=== PATIENT | female | born 1990 | race Two or more races ===

== ENCOUNTER → 2019-03-06 | Outpatient (REF) | payer OTHER ==
[2019-03-06 13:13] LABS: HEMATOCRIT 42.2 % (36.0-47.0); MEAN CORPUSCULAR HEMOGLOBIN 27.7 pg (27.0-33.0); MEAN CORPUSCULAR HGB CONC 33.2 g/dl (32.0-36.5); MEAN CORPUSCULAR VOLUME 83.6 fl (80.0-96.0); PLATELET COUNT, AUTOMATED 196 10^3/uL (150-450); RED BLOOD COUNT 5.05 10^6/uL (4.00-5.40); WHITE BLOOD COUNT 10.2 10^3/uL (4.0-10.0)
[2019-03-06 13:56] LABS: HCG, SERUM QUANTITATIVE 25456 MIU/ML
[2019-03-07 09:07] LABS: RUBELLA IgG QUALITATIVE IMMUNE (IMMUNE)
[2019-03-07 09:37] LABS: HIV 1&2 SCREEN CENTAUR NEGATIVE (NEGATIVE)
[2019-03-07 12:52] LABS: HEPATITIS C VIRUS ABY INDEX 0.2 INDEX (<0.8)
== END ==
LOC: M LAB REF 12:24
PROVIDERS: ATTEND Nurse Practitioner Women's Health
DX: Z32.01 Encounter for pregnancy test, result positive (principal); O36.80X0 Pregnancy with inconclusive fetal viability, not applicable or unspecified; Z3A.00 Weeks of gestation of pregnancy not specified

== ENCOUNTER → 2019-07-15 | Outpatient (REF) | payer OTHER | LOC: M SFHCLERA 11:55 | PROVIDERS: ATTEND Nurse Practitioner Family | DX: J00 Acute nasopharyngitis [common cold] (principal) ==

== ENCOUNTER → 2019-08-07 | Outpatient (CLI) | payer OTHER ==
[2019-08-07 11:06] LABS: HEMATOCRIT 38.9 % (36.0-47.0); MEAN CORPUSCULAR HEMOGLOBIN 28.7 pg (27.0-33.0); MEAN CORPUSCULAR HGB CONC 33.4 g/dl (32.0-36.5); MEAN CORPUSCULAR VOLUME 85.9 fl (80.0-96.0); PLATELET COUNT, AUTOMATED 108 10^3/uL (150-450); RED BLOOD COUNT 4.53 10^6/uL (4.00-5.40); WHITE BLOOD COUNT 11.7 10^3/uL (4.0-10.0)
== END ==
LOC: M LAB 09:19
PROVIDERS: ATTEND Obstetrics & Gynecology
DX: Z34.82 Encounter for supervision of other normal pregnancy, second trimester (principal)

== ENCOUNTER → 2019-10-03 | Outpatient (REF) | payer OTHER | LOC: M LAB REF 16:13 | PROVIDERS: ATTEND Obstetrics & Gynecology | DX: Z34.83 Encounter for supervision of other normal pregnancy, third trimester (principal) ==

== ENCOUNTER → 2019-10-22 | Outpatient (CLI) | payer OTHER ==
[~2019-10-22] MED LIST: FOLI0.4T2 PO; IBUP80TA PO; PERCOCET PO; PRENTAB55 PO
== END ==
LOC: M LABSMTC 10:41
PROVIDERS: ATTEND Anesthesiology
DX: Z01.818 Encounter for other preprocedural examination (principal); Z11.59 Encounter for screening for other viral diseases
CPT/HCPCS: C9803; U0002

== ENCOUNTER 2019-10-24 05:12 | Inpatient (IN) | payer OTHER ==
[2019-10-24] VITALS (11 sets, daily range): BP systolic 104–141; BP diastolic 57–95
[~2019-10-24] VITALS: Ht 175.3 cm; Wt 116.5 kg
[~2019-10-24 05:12] MED LIST changes: -IBUP80TA PO; -PERCOCET PO
[2019-10-24] MEDS ORDERED: LR 1,000 ML IV SCH (05:35)
[2019-10-24] MEDS ORDERED: LACTATED RINGER'S 1000 ML IV STA (05:35)
[2019-10-24] MEDS ORDERED: BICITRA 30ML SOLN UDC PO ONE (05:45)
[2019-10-24] MEDS ORDERED: ceFAZolin SOD 2 GM in IV 1 EA IV ONE (05:45)
[2019-10-24 06:14] LABS: HEMATOCRIT 39.2 % (36.0-47.0); HEMOGLOBIN 13.5 g/dl (12.0-15.5); MEAN CORPUSCULAR HEMOGLOBIN 28.2 pg (27.0-33.0); MEAN CORPUSCULAR HGB CONC 34.4 g/dl (32.0-36.5); PLATELET COUNT, AUTOMATED 162 10^3/uL (150-450); RED BLOOD COUNT 4.78 10^6/uL (4.00-5.40); WHITE BLOOD COUNT 12.3 10^3/uL (4.0-10.0)
[2019-10-24] MEDS ORDERED: MORPHINE PRES-FREE INJ 10 MG/10 ML VIAL (J2274) As Ordered ONE (07:30)
[2019-10-24] MEDS ORDERED: ePHEDrine SULFATE 25 MG/5 ML(5MG/ML) SYRINGE As Ordered ONE ×2 (07:46→07:57)
[2019-10-24] MEDS ORDERED: PHENYLephrine HCL 500 MCG/5 ML (100MCG/ML) SYRINGE (J2370) As Ordered ONE (07:46)
[2019-10-24] MEDS ORDERED: OXYTOCIN 30 UNITS IN 0.9% NaCl 500ML IV BAG (J2590) As Ordered ONE ×2 (07:50→08:59)
[2019-10-24] MEDS ORDERED: ONDANSETRON 4MG/2ML VIAL As Ordered ONE ×2 (07:54→08:06)
[2019-10-24] MEDS ORDERED: ONDANSETRON 4MG/2ML VIAL IV PRN ×2 (08:00→09:15)
[2019-10-24] MEDS ORDERED: diphenhydrAMINE 50MG/ML VIAL (J1200) IV PRN (08:00)
[2019-10-24] MEDS ORDERED: NALBUPHINE HCL 10 MG/ML AMP (J2300) IV PRN ×2 (08:00→09:15)
[2019-10-24] MEDS ORDERED: NALOXONE INJ 0.4MG/1ML VIAL (J2310 PER 1MG) IV PRN ×2 (08:00)
[2019-10-24] MEDS ORDERED: METOCLOPRAMIDE INJ 10MG/2ML VIAL (J2765 PER 1) IV PRN (08:00)
[2019-10-24] MEDS ORDERED: KETOROLAC 60 MG/2 ML VIAL As Ordered ONE ×2 (08:05→08:06)
[2019-10-24 08:14] LABS: CORD GAS ABE V -3.8; CORD GAS HCO3 V 21.9 MEQ/L; CORD GAS O2 SAT V 80.1 %; CORD GAS PCO2 V 41.9 mmHg; CORD GAS PH V 7.336 UNITS; CORD GAS PO2 V 39.2 mmHg; CORD GAS TCO2 V 23.2 MEQ/L
[2019-10-24 08:17] LABS: CORD GAS ABE A -3.4; CORD GAS HCO3 A 23.4 MEQ/L; CORD GAS O2 SAT A 62.8 %; CORD GAS PCO2 A 48.6 mmHg; CORD GAS PH A 7.3 UNITS; CORD GAS PO2 A 30.6 mmHg; CORD GAS SBC A 20.9 MEQ/L; CORD GAS TCO2 A 24.9 MEQ/L
[2019-10-24] MEDS ORDERED: OXYTOCIN DRIP 30 UNITS in IV 1 EA IV SCH (08:51)
[2019-10-24] MEDS: DOCUSATE SODIUM 100 MG CAP PO SCH ×2 (09:00→20:39)
[2019-10-24] MEDS ORDERED: ONDANSETRON 4 MG TAB PO PRN (09:00)
[2019-10-24] MEDS ORDERED: MEASLES,MUMPS,RUBELLA VACCINE INJ (MMR-II) (90707) SC SCH (09:00)
[2019-10-24] MEDS ORDERED: RHOGAM 300 MCG (1500 IU) INJ (J2790) IM SCH (09:00)
[2019-10-24] MEDS: PRENATAL VITAMINS CHEWABLE TABLET PO SCH (09:00)
[2019-10-24] MEDS ORDERED: MOM 30ML SUSPENSION UDC PO PRN (09:00)
[2019-10-24] MEDS ORDERED: fentaNYL 100 MCG/2 ML INJECTION (J3010) IV PRN (09:15)
[2019-10-24] MEDS: IBUPROFEN 800 MG TAB PO SCH (16:00)
[2019-10-25] MEDS: IBUPROFEN 800 MG TAB PO SCH ×3 (00:12→16:04)
[2019-10-25 02:00] VITALS: BP 103/54
[2019-10-25 06:00] VITALS: BP 118/67
[2019-10-25 07:39] LABS: HEMATOCRIT 33.1 % (36.0-47.0); MEAN CORPUSCULAR HEMOGLOBIN 27.4 pg (27.0-33.0); MEAN CORPUSCULAR HGB CONC 32.3 g/dl (32.0-36.5); MEAN CORPUSCULAR VOLUME 84.9 fl (80.0-96.0); WHITE BLOOD COUNT 9.5 10^3/uL (4.0-10.0)
[2019-10-25 08:08] LABS: HEMOGLOBIN 10.7 g/dl (12.0-15.5)
[2019-10-25] MEDS: DOCUSATE SODIUM 100 MG CAP PO SCH ×2 (08:41→21:02)
[2019-10-25] MEDS: PRENATAL VITAMINS CHEWABLE TABLET PO SCH (08:42)
[2019-10-25 10:00] VITALS: BP 114/64
[2019-10-25 14:45] VITALS: BP 121/75
[2019-10-25 18:00] VITALS: BP 125/71
[2019-10-25] MEDS: PERCOCET 5MG/325MG TAB PO PRN (21:02)
[2019-10-25 22:00] VITALS: BP 125/79
[2019-10-26] MEDS: IBUPROFEN 800 MG TAB PO SCH ×2 (00:17→08:00)
[2019-10-26 06:00] VITALS: BP 120/72
[2019-10-26] MEDS: PRENATAL VITAMINS CHEWABLE TABLET PO SCH (07:59)
[2019-10-26] MEDS: PERCOCET 5MG/325MG TAB PO PRN (07:59)
[2019-10-26] MEDS: DOCUSATE SODIUM 100 MG CAP PO SCH (08:00)
[2019-10-26] MEDS ORDERED: IBUP80TA PO (08:11)
[2019-10-26] MEDS ORDERED: PERCOCET PO (08:11)
--- NOTE | 2019-10-26 08:19 | OBDS ---
[facility] Obstetrical Discharge Sum. Obstetrical Discharge Summary Date: October 26, 2019 Time: 08:15 : 2 Term: 2 Pre-term: 0 Abortions: 2 VDRL: Non-Reactive Rh: Positive Rubella: Immune Infant Sex: Male Weight: pounds (8) Anesthesia: Regional Anesthesia A/P, Post Course List any complications Admission diagnosis: Term for elective repeat c/s; Desires permanent tubal sterilization Discharge diagnosis: same Condition at Discharge: [Stable] Discharge Instructions: [Call if temp >101 or severe pain ] Activity: [as tolerated] Diet: [regular] Medications: [see list] Follow-up: [2 weeks] Other: Bright Cool DO October 26, 2019 08:19
--- NOTE | 2019-10-26 10:01 | RO ---
DATE OF PROCEDURE: 10/24/2019 Hellen is a 29-year-old female with a history of prior section who is being admitted for elective repeat section. The patient also desires permanent tubal sterilization. PREOPERATIVE DIAGNOSES: 1. Term for an elective repeat section. 2. Desires permanent tubal sterilization. POSTOPERATIVE DIAGNOSES: 1. Term for an elective repeat section. 2. Desires permanent tubal sterilization. 3. Revision of old scar. PROCEDURE: 1. Repeat section. 2. Bilateral tubal ligation using Filshie clip SURGEON: Dr. Bright Cool [employer]ILDING CLEANING SUPERVISOR: ANESTHESIA: Spinal. COMPLICATIONS: None. ESTIMATED BLOOD LOSS: 500 mL. FINDINGS: Live male infant in occiput transverse position. 9 and 9. weight 8 pounds 5 ounces. Normal appearing placenta, tubes and ovaries. DESCRIPTION OF PROCEDURE: After obtaining informed consent, the patient was taken to the operating room where spinal anesthetic was found to be adequate. She was then draped and prepped in the usual sterile fashion in the supine position. At this point, an elliptical incision was made over the old scar. The old scar was removed. The incision was carried down to the fascia. The fascia was incised in midline fashion and carried through laterally. The superior aspect of the fascia was then grasped with two Rhea clamps, tented off and dissected off the right rectus muscles sharply. The inferior aspect was dissected off in similar fashion. The rectus muscles in midline fashion. The peritoneum identified. Peritoneal cavity entered bluntly. Superior and inferior dissection of peritoneum was then done with good visualization of the bladder. At this point, a Mobius skin retractor was placed. A low transverse uterine incision was made. was delivered in atraumatic fashion. Nose and mouth bulb suctioned. Cord doubly clamped and cut. The was handed over to the awaiting warmer. Cord blood and cord gas were sent. Placenta removed manually. Uterus cleared of all clot and debris. The uterine incision was then repaired in two separate layers of 0 vicryl sutures. At this point, attention was turned to the fallopian tubes where the fimbriated ends were identified. Then a Filshie clip was placed approximately 2-3 cm away from the cornual area of each tube. Good hemostasis noted. The pelvis copiously irrigated with normal saline and suctioned out. Attention turned to the peritoneum which was closed in a running fashion using #2-0 Vicryl. The fascia closed in two separate segments of #0 Vicryl sutures. All superficial bleeders were coagulated. The skin was reapproximated in subcuticular fashion using #3-0 Vicryl on a Corey. Steri-Strips placed. The patient tolerated the procedure well. She was then transferred to recovery room in stable condition. EMILY
== END 2019-10-26 11:30 | disposition home or self-care (01) | DRG 785 ==
LOC: M LDI 05:12 → M OBS 10:15
PROVIDERS: ADMIT Obstetrics & Gynecology; ATTEND Obstetrics & Gynecology
PROC: 0UL70ZZ Occlusion of Bilateral Fallopian Tubes, Open Approach (ICD-10-PCS; 2019-10-24)
PROC: 10D00Z1 Extraction of Products of Conception, Low, Open Approach (ICD-10-PCS; principal; 2019-10-24 07:30)
DX: O34.211 Maternal care for low transverse scar from previous cesarean delivery (principal); Z37.0 Single live birth; Z30.2 Encounter for sterilization; Z3A.39 39 weeks gestation of pregnancy

== ENCOUNTER → 2020-09-12 | Outpatient (CLI) | payer OTHER ==
[~2020-09-12] MED LIST changes: -FOLI0.4T2 PO; +FOLI400T5 PO; +IBUP80TA PO; +PERCOCET PO
--- NOTE | 2020-09-12 14:39 | REP ---
INDICATION: LT WRIST GANGLION CYST. COMPARISON: None. TECHNIQUE: Soft tissue ultrasound palpable area left wrist. Patient states the palpable area was present 2 weeks ago but has disappeared since. States she now has pain in this area. FINDINGS: Sonographic evaluation the wrist in the area of her reported prior palpable finding. There is no subcutaneous mass, abnormal fluid collection or cystic lesion. See no skin thickening. IMPRESSION: 1. Negative exam for subcutaneous soft tissue mass, cyst or fluid collection. <Electronically signed by Froy Patton > 09/12/20 1438
== END ==
LOC: M RAD 11:38
PROVIDERS: ATTEND Nurse Practitioner Family
DX: M67.432 Ganglion, left wrist (principal)

== ENCOUNTER → 2021-01-06 | Outpatient (CLI) | payer OTHER ==
[2021-01-06 18:29] LABS: ALBUMIN 3.9 GM/DL (3.2-5.2); ALT/SGPT 26 U/L (12-78); BILIRUBIN,TOTAL 0.4 MG/DL (0.2-1.0); BLOOD UREA NITROGEN 7 MG/DL (7-18); CALCIUM LEVEL 9.5 MG/DL (8.5-10.1); CARBON DIOXIDE LEVEL 24 MEQ/L (21-32); CHLORIDE LEVEL 108 MEQ/L (98-107); CHOLESTEROL LEVEL 180 MG/DL (<200); CHOLESTEROL RISK RATIO 2.857 (<5); CREATININE FOR GFR 0.78 MG/DL (0.55-1.30); GLOMERULAR FILTRATION RATE > 60.0 (>60); GLUCOSE, FASTING 112 MG/DL (70-100); HDL CHOLESTEROL 63 MG/DL (>40); LDL CHOLESTEROL 102 MG/DL (<100); NON-HDL-C 117 MG/DL; POTASSIUM SERUM 3.5 MEQ/L (3.5-5.1); SODIUM LEVEL 139 MEQ/L (136-145); TOTAL PROTEIN 7.7 GM/DL (6.4-8.2); TRIGLYCERIDES LEVEL 73 MG/DL (<150)
== END ==
LOC: M WUC 12:01
PROVIDERS: ATTEND Student in an Organized Health Care Education/Training Program
DX: L65.9 Nonscarring hair loss, unspecified (principal); Z68.39 Body mass index [BMI] 39.0-39.9, adult
CPT/HCPCS: 36415; 80053; 80061; 84439; 84443; G0463